=== PATIENT | female | born 1940 | race Caucasian/White ===

== ENCOUNTER 2023-10-29 12:30 | Inpatient (IN) ==
[2023-11-23 15:32] LABS: Blood Urea Nitrogen 14 mg/dL (8-23); Calcium 9.2 mg/dL (8.6-10.4); Carbon Dioxide 27 mmol/L (22-30); Chloride 88 mmol/L (96-108); Glomerular Filtration Rate 81; Glucose 105 mg/dL (70-105); Potassium 3.5 mmol/L (3.3-5.1); Sodium 127 mmol/L (133-145)
[2023-11-23 16:59] LABS: Basophils # (Auto) 0.06 K/mcL (0.00-0.30); Basophils % (Auto) 0.8 % (0.0-2.0); Eosinophils # (Auto) 0 K/mcL (0.00-0.70); Eosinophils % (Auto) 0 % (0.0-7.0); Hemoglobin 13.1 g/dL (11.2-15.7); Lymphocytes # (Auto) 3.16 K/mcL (1.50-4.80); Lymphocytes % (Auto) 41.4 % (15.5-49.0); Mean Cell Volume 93.8 fL (80.0-100.0); Mean Corpuscular HGB Conc 34.5 g/dL (31.0-36.0); Mean Platelet Volume 9.8 fL (8.8-12.5); Monocytes # (Auto) 0.61 K/mcL (0.10-0.90); Neutrophils % (Auto) 49.7 % (38.0-78.0); Platelet Count 250 K/mcL (140-440); RBC 4.05 M/mcL (3.59-5.38); Red Cell Distribution Width 13.1 % (11.5-14.5); WBC 7.6 K/mcL (4.5-11.0)
[2023-11-29] MEDS ORDERED: ONDANSETRON 4 MG/2 ML VIAL ONE (10:58)
[2023-11-29] MEDS ORDERED: PROPOFOL 200 MG/20 ML VIAL IV ONE (10:58)
[2023-11-29] MEDS ORDERED: DEXAMETHASONE 10 MG/ML VIAL ONE (10:58)
[2023-11-29] MEDS ORDERED: MAGNESIUM SULFATE 2 GM/50 ML BAG IV ONE (10:58)
[2023-11-29] MEDS ORDERED: KETAMINE 50 MG/ML Syringe IV ONE (10:58)
[2023-11-29] MEDS ORDERED: LIDOCAINE 2% PF 5 ML VIAL ONE (10:58)
[2023-11-29] MEDS: ceFAZolin 2 GM in DEXTROSE 5% IN WATER 50 ML IV SCH (11:38)
[2023-11-29] MEDS ORDERED: TRANEXAMIC ACID 1,000 MG/10 ML VIAL ONE (12:01)
[2023-11-29] MEDS ORDERED: ePHEDrine 50 MG/5 ML SYRINGE (ANEST) IV ONE (12:10)
[2023-11-29] MEDS ORDERED: BISACODYL 10 MG SUPP.RECT PR PRN (14:36)
[2023-11-29] MEDS ORDERED: MAGNESIUM HYDROXIDE 30 ML ORAL.SUSP PO PRN (14:36)
[2023-11-29] MEDS ORDERED: POLYETHYLENE GLYCOL 3350 17 GM PACKET PO PRN (14:36)
[2023-11-29] MEDS ORDERED: FLEETS ADULT 1 DOSE ENEMA PR PRN (14:36)
[2023-11-29] MEDS: VANCOMYCIN 1 GM VIAL TOPICAL SCH (15:02)
[2023-11-29] MEDS ORDERED: DROPERIDOL 5 MG/2 ML VIAL IV PRN (15:07)
[2023-11-29] MEDS ORDERED: NALOXONE HCL 0.4 MG/ML VIAL IV PRN (15:07)
[2023-11-29] MEDS ORDERED: ONDANSETRON 4 MG/2 ML VIAL IV PRN (15:07)
[2023-11-29] MEDS ORDERED: IPRATROPIUM/ALBUTEROL 3 ML AMPUL.NEB NEB PRN (15:07)
[2023-11-29] MEDS: fentaNYL 100 MCG/2 ML VIAL IV PRN (15:15)
[2023-11-29] MEDS: KETOROLAC 15 MG/ML VIAL IV PRN (15:15)
[2023-11-29] MEDS: TRANEXAMIC ACID 1,000 MG/10 ML VIAL IV ONE (15:17)
[2023-11-29] MEDS: HYDROmorphone 0.5 MG/0.5 ML SYRINGE IV PRN (15:31)
[2023-11-29] MEDS: LACTATED RINGERS 1,000 ML IV SCH (16:02)
[2023-11-29] MEDS: CARVEDILOL 3.125 MG TABLET PO SCH (18:21)
[2023-11-29] MEDS: ONDANSETRON 4 MG/2 ML VIAL IV PRN (18:22)
[2023-11-29] MEDS: oxyCODONE IR 5 MG TABLET PO PRN (18:25)
[2023-11-29] MEDS: ceFAZolin 1 GM VIAL IV SCH (19:21)
[2023-11-29] MEDS: PROCHLORPERAZINE 10 MG/2 ML VIAL IV PRN (20:28)
[2023-11-29] MEDS: ASPIRIN 81 MG TAB.CHEW CHEWED SCH (21:14)
[2023-11-29] MEDS: 0.9 % SODIUM CHLORIDE 10 ML SYRINGE IV SCH (21:15)
[2023-11-29] MEDS: SENNOSIDES 1 TABLET PO SCH (21:15)
[2023-11-29] MEDS: ACETAMINOPHEN 500 MG TABLET PO SCH (21:15)
[2023-11-29] MEDS: DOCUSATE SODIUM 100 MG CAPSULE PO SCH (21:15)
[2023-11-29] MEDS: METHOCARBAMOL 500 MG TABLET PO PRN (21:15)
[2023-11-29] MEDS: LEVOTHYROXINE 50 MCG TABLET PO SCH (21:15)
[2023-11-30] MEDS: HYDROCHLOROTHIAZIDE 12.5 MG CAPSULE PO SCH (10:21)
[2023-11-30] MEDS: amLODIPine 5 MG TABLET PO SCH (10:21)
[2023-11-30 18:11] LABS: Appearance,Urine Clear (Clear); Bilirubin,Urine Negative (Negative); Color,Urine Yellow; Culture Indicated,Urine No; Glucose,Urine (UA) Negative (Negative); Ketones,Urine Negative (Negative); Leukocyte Esterase,Urine Negative /uL (Negative); Nitrate,Urine Negative (Negative); PH,Urine 5.5 (5.0-9.0); Protein,Urine Negative (Negative); Urine Blood Negative ery/mcL (Negative); Urobilinogen,Urine Normal
[2023-12-01] MEDS: BENZOCAINE/MENTHOL 1 LOZENGE PO PRN (22:08)
== END 2023-12-03 11:39 | DRG 481 ==
LOC: EDSTATUS 14:00 → MEDSUR 11-29 09:02
PROVIDERS: ADMIT Orthopaedic Surgery; ATTEND Orthopaedic Surgery